=== PATIENT | male | born 1935 | race Caucasian/White ===

== ENCOUNTER 2018-01-07 12:50 | Emergency (ER) | payer MEDICARE, OTHER ==
[2018-01-07 16:24] LABS: ADD MAN DIFF? NO
[2018-01-07 16:30] LABS: ABNORMAL IP MESSAGE 1; BASOPHILS % 0.4 % (0.0-2.0); EOSINOPHILS # 1.1 10^3/ul (0.0-0.5); EOSINOPHILS % 10.1 % (0.0-7.0); HEMATOCRIT 43.4 % (42.0-52.0); HEMOGLOBIN 13.9 g/dl (14.0-18.0); LYMPHOCYTES # 1.6 10^3/ul (0.8-2.9); LYMPHOCYTES % 15.6 % (15.0-51.0); MEAN CORPUSCULAR HEMOGLOBIN 31.9 pg (29.0-33.0); MEAN CORPUSCULAR VOLUME 99.5 fl (82.0-101.0); MEAN PLATELET VOLUME 13.8 fl (7.4-10.4); MONOCYTE # 1.8 10^3/ul (0.3-0.9); MONOCYTES % 17.1 % (0.0-11.0); NEUTROPHIL # 5.9 10^3/ul (1.6-7.5); NEUTROPHILS % 56.2 % (39.0-77.0); PLATELET COUNT 133 10^3/UL (140-415); POSITIVE DIFF @See below; RED BLOOD COUNT 4.36 10^6/ul (4.70-6.10); RED CELL DISTRIBUTION WIDTH 14.5 % (11.5-14.5)
[2018-01-07 16:30] LABS: WHITE BLOOD COUNT 10.5 10^3/ul (4.8-10.8)
[2018-01-07 16:52] LABS: ANION GAP 14 (8-16); BLOOD UREA NITROGEN 24 mg/dl (7-20); C-REACTIVE PROTEIN 7.4 mg/dl (0.0-0.9); CALCIUM 9.5 mg/dl (8.4-10.2); CARBON DIOXIDE 28 mmol/L (21-31); CHLORIDE 105 mmol/L (97-110); CREATININE 1.76 mg/dl (0.61-1.24); GLUCOSE 109 mg/dl (70-220); POTASSIUM 4.2 mmol/L (3.5-5.1); SODIUM 143 mmol/L (135-144)
[2018-01-07 17:38] LABS: ERYTHROCYTE SEDIMENTATION RATE 64 mm/Hr (0-20)
[2018-01-07 18:08] LABS: ANISOCYTOSIS 1+ (0-0); EOSINOPHILS % (M) 8 % (0-7); LYMPHOCYTES #M 2.1 10^3/ul (0.8-2.9); LYMPHOCYTES % (M) 20 % (15-51); MONOCYTE #M 0.6 10^3/ul (0.3-0.9); MONOCYTES % (M) 6 % (0-11); REACTIVE LYMPHOCYTES #M 0.5 10^3/ul (0.0-0.0); REACTIVE LYMPHOCYTES% (M) 5 % (0-0); SEGMENTED NEUTROPHILS (M) % 61 % (39-77); SMUDGE%M 9 % (0-0)
== END 2018-01-07 18:35 | disposition home or self-care (01) ==
LOC: FTE 12:50
DX: L03.113 Cellulitis of right upper limb (principal)
CPT/HCPCS: 73130; 73130-RT; 80048; 85025; 85651; 86140; 99284-25

== ENCOUNTER 2018-02-26 09:48 | Emergency (ER) | payer MEDICARE, OTHER ==
[2018-02-26] MEDS: IBUPROFEN 600 MG TAB PO (10:13)
== END 2018-02-26 12:00 | disposition home or self-care (01) ==
LOC: FTE 09:48
DX: M25.562 Pain in left knee (principal); E11.9 Type 2 diabetes mellitus without complications; E03.9 Hypothyroidism, unspecified
CPT/HCPCS: 73562; 99283-25